=== PATIENT | male | born 2000 | race Hispanic/Latino ===

== ENCOUNTER 2022-10-11 10:46 | Emergency (ER) | payer OTHER ==
--- OUTSIDE RECORDS SUMMARY | 2022-10-11 10:50 | XMS REPORT | Continuity of Care Document ---
:2000 Author Organization [facility] t Address [address] [place] [address] [address] [place] [address] Care Team Providers Name Role Phone Linda Janessa Attending Clinician Unavailable Regi Pizano Admitting Clinician Unavailable Payers Payer Name Policy Type Policy Number Effective Date Expiration Date S ource Problems This patient has no known problems. Allergies, Adverse Reactions, Alerts Allergy Allergy Status Severity Reaction(s) Onset Inactive Treating Comm ents Source Name Type Date Date Clinician No Known DA Active U [facility] Allergie 06-04 [facility] 00:00: d 00 [facility] Medications This patient has no known medications. Procedures This patient has no known procedures. Encounters Start End Encounter Admission Attending Care Care Encounter Source Date/Time Date/Time Type Type Clinicians Facility Department ID 2021-06-06 2021-06-06 Outpatient [facility] [id number] [facility] 11:48:00 11:48:00 Janessa 40 [facility] Results Test Description Test Time Test Comments Results Result [facility] e Comments - US SCROTUM AND 2021-06-06 [facility] 2000 Sex: M FAX: Regi Navarrete MD [phone] [place]: St: REG FAX: Janessa Alvarez MD [phone] Name: MUKESH RYAN [facility] : 2000 Age/S: 21/M [address] Unit #: [id number] Loc: [place] [address] Phys: Janessa Mckeon MD Acct: [id number] Dis Date: Status: REG CLI PHONE #: [phone] Exam Date: 06/06/2021 1454 FAX #: [phone] Reason: EPIDIDYMITIS EXAMS: CPT CODE: [id number] US SCROTUM AND CNTS 25272 B2 EXAMINATION: - US SCROTUM AND CNTS COMPARISON: None HISTORY: Epididymitis TECHNIQUE: Multiplanar grayscale and Doppler ultrasound images of the testicles are submitted for review. Spectral analysis was also performed. FINDINGS: RIGHT TESTICLE: The right testicle measures 4.2 x 2.2 x 2.8 cm. RIGHT EPIDIDYMIS: The right epididymal head measures 0 9 x 1.1 x 1.4 cm LEFT TESTICLE: The left testicle measures 4.0 x 2.2 x 2.3 cm. LEFT EPIDIDYMIS: The left epididymal head measures 0.7 x 1.3 x 0.9 cm and contains a tiny 3 x 2 mm cyst. There is normal arterial flow to the testicles. There are scattered echogenic foci within both testicles compatible with calcifications. Right-sided varicocele. The scrotum is unremarkable. Trace simple hydrocele bilaterally. There is no discrete swelling or increased flow to the epididymis. IMPRESSION: Testicular microlithiasis. Right sided varicocele. at 1624 Reported and signed by: DOMINIQUE COPELAND MD PAGE 1 Signed Report (CONTINUED) FAX: Regi Navarrete MD [phone] [place]: St: REG FAX: Janessa Alvarez MD [phone] Name: MUKESH RYAN [facility] : 2000 Age/S: 21/M [address] Unit #: [id number] Loc: [place] [address] Phys: Janessa Mckeon MD Acct: [id number] Dis Date: Status: REG CLI PHONE #: [phone] Exam Date: 06/06/2021 1454 FAX #: [phone] Reason: EPIDIDYMITIS EXAMS: CPT CODE: [id number] US SCROTUM AND CNTS 92051 (Continued) CC: Regi Pizano MD; Janessa Mckeon MD Technologist: SALLY Collier Date/Time/By: 06/06/2021 (4054) : By: Ashkan PAGE 2 Signed Report FAX: Regi Navarrete MD [phone] [place]: St: REG FAX: Janessa Alvarez MD [phone] Name: MUKESH RYAN [facility] : 2000 Age/S: 21/M [address] Unit #: [id number] Loc: [place] [address] Phys: Janessa Mckeon MD Acct: [id number] Dis Date: Status: REG CLI PHONE #: [phone] Exam Date: 06/06/2021 1453 FAX #: [phone] Reason: EPIDIDYMITIS EXAMS: CPT CODE: [id number] US SCROTUM AND CNTS 46527 (Continued) Orig Print D/T: S: 06/06/2021 (6623) PAGE 3 Signed Report
--- NOTE | 2022-10-11 11:31 | RAD REPORT ---
EXAM DESCRIPTION: RAD - Lumbar Spine 3 Views - 10/11/2022 11:17 am CLINICAL HISTORY: Back pain FINDINGS: No fracture or dislocation is seen. No significant bone or joint abnormality noted
--- NOTE | 2022-10-11 11:33 | RAD REPORT ---
EXAM DESCRIPTION: RAD - Knee Left 3 View - 10/11/2022 11:18 am CLINICAL HISTORY: Left knee pain FINDINGS: No fracture or dislocation is seen. No bone or joint abnormality noted
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
[2022-10-11 14:19] VITALS: TEMP 98.1
[2022-10-11 14:20] VITALS: BP 125/70; O2SAT 99
== END 2022-10-11 14:06 | disposition home or self-care (01) ==
LOC: ER 10:46
DX: M25.562 Pain in left knee (principal); M54.50 Low back pain, unspecified; V49.50XA Passenger injured in collision with unspecified motor vehicles in traffic accident, initial encounter
CPT/HCPCS: 72100; 99283